=== PATIENT | female | born 1995 | race African-American/Black ===

== ENCOUNTER 2018-02-17 15:46 | Inpatient (IN) | payer OTHER ==
[~2018-02-17] VITALS: Ht 165.1 cm; Wt 100.7 kg
[2018-02-17] MEDS ORDERED: OXYTOCIN 10 UNITS/ML VIAL IM SCH (17:15)
[2018-02-17] MEDS ORDERED: METHYLERGONOVINE 0.2 MG/ML AMP IM PRN (17:15)
[2018-02-17] MEDS ORDERED: LACTATED RINGERS 1,000 ML IV SCH (17:15)
[2018-02-17] MEDS ORDERED: AMPICILLIN 2,000 MG in NACL 0.9% MINI-BAG PLUS 100 ML IV SCH (17:15)
[2018-02-17] MEDS ORDERED: NALBUPHINE 10 MG/ML AMP IVP PRN (17:15)
[2018-02-17] MEDS ORDERED: CARBOPROST 250 MCG/ML AMP IM PRN (17:15)
[2018-02-17] MEDS ORDERED: PROMETHAZINE 25 MG/ML VIAL IVP PRN (17:15)
[2018-02-17] MEDS ORDERED: PREN-546 PO (17:15)
[2018-02-17] MEDS ORDERED: MISOPROSTOL 25 MCG TAB ONE (18:16)
[2018-02-17 18:18] LABS: BASOPHILS # (AUTO) 0.1 K/uL (0.00-0.22); BASOPHILS % (AUTO) 0.6 % (0.0-2.0); EOSINOPHILS # (AUTO) 0.1 K/uL (0-0.4); EOSINOPHILS % (AUTO) 0.8 % (0.0-4.0); HEMATOCRIT 38.2 % (36-48); HEMOGLOBIN 12.5 g/dL (12.0-16.0); LYMPHOCYTES # (AUTO) 1.7 K/uL (2.5-16.5); LYMPHOCYTES % (AUTO) 18.2 % (20.5-51.1); MEAN CORPUSCULAR HEMOGLOBIN 29 pg (27-31); MEAN CORPUSCULAR HGB CONC 33 g/dL (33-37); MEAN CORPUSCULAR VOLUME 89.8 fL (80-94); MONOCYTES # (AUTO) 0.8 K/uL (0.8-1.0); MONOCYTES % (AUTO) 8.5 % (1.7-9.3); NEUTROPHILS # (AUTO) 6.6 K/uL (1.8-7.7); NEUTROPHILS % (AUTO) 71.9 % (42.2-75.2); PLATELET COUNT (AUTO) 250 K/uL (140-450); RED BLOOD CELL COUNT(AUTO) 4.25 MIL/uL (4.20-5.40); RED CELL DISTRIBUTION WIDTH 13.8 % (11.6-13.7); WHITE BLOOD COUNT (AUTO) 9.2 K/uL (4.8-10.8)
[2018-02-17 18:23] LABS: APPEARANCE,URINE SL CLOUDY (CLEAR); BILIRUBIN,URINE NEGATIVE (NEGATIVE); BLOOD, URINE NEGATIVE (NEGATIVE); COLOR,URINE YELLOW (YELLOW); LEUKOCYTE ESTERASE ,URINE NEGATIVE (NEGATIVE); NITRITE, URINE NEGATIVE (NEGATIVE); UGLUCOSE NEGATIVE (NEGATIVE)
[2018-02-17 18:29] LABS: BARBITURATE, URINE NEG. ng/ml (NEG <=200); BENZODIAZEPINE, URINE NEG. ng/mL (NEG <=200); CANNABINOID, URINE NEG. ng/mL (NEG <=50); COCAINE, URINE NEG. ng/mL (NEG <=300); OPIATE, URINE NEG. ng/mL (NEG <=2000); PHENCYCLIDINE SCREEN,URINE NEG. ng/mL (NEG <=25)
[2018-02-17 18:53] LABS: ALBUMIN 2.9 g/dL (3.4-5.0); CARBON DIOXIDE 20.8 mmol/L (21-32); CREATININE 0.6 mg/dL (0.6-1.3); POTASSIUM 3.8 mmol/L (3.5-5.1); TOTAL BILIRUBIN 0.3 mg/dL (0.0-1.0)
[2018-02-17] MEDS ORDERED: AMPICILLIN 1,000 MG in NACL 0.9% MINI-BAG PLUS 50 ML IV SCH (20:00)
[2018-02-17] MEDS: MISOPROSTOL 25 MCG TAB VG PRN (21:19)
[2018-02-17] MEDS ORDERED: AMPICILLIN 2,000 MG VIAL ONE (21:33)
[2018-02-18] MEDS ORDERED: AMPICILLIN 1,000 MG VIAL ONE ×5 (01:29→18:49)
[2018-02-18] MEDS ORDERED: MISOPROSTOL 25 MCG TAB ONE (01:29)
[2018-02-18] MEDS: MISOPROSTOL 25 MCG TAB VG PRN (01:53)
[2018-02-18] MEDS ORDERED: PROMETHAZINE 25 MG/ML VIAL ONE (05:17)
[2018-02-18] MEDS ORDERED: NALBUPHINE 10 MG/ML AMP ONE (05:17)
[2018-02-18] MEDS ORDERED: AMPICILLIN 2,000 MG VIAL ONE ×2 (05:36→20:00)
[2018-02-18] MEDS ORDERED: OXYTOCIN 20 UNITS/LR PREMIX 1,000 ML IV ONE (05:38)
--- NOTE | 2018-02-18 08:13 | NUR ---
PATIENT HAS BEEN SCREENED AND CATEGORIZED LOW RISK. PATIENT WILL BE SEEN WITHIN 7 DAYS OF ADMISSION. 02/24/[address], [facility]
[2018-02-18] MEDS ORDERED: ROPIVACAINE 0.2%/NS PREMIX 250 ML EPI ONE ×2 (10:01→17:14)
[2018-02-18] MEDS ORDERED: ROPIVACAINE 0.2%/NS PREMIX 250 ML EPI SCH (11:04)
[2018-02-18] MEDS ORDERED: TERBUTALINE 1 MG/ML VIAL SUBQ ONE (16:42)
[2018-02-18] MEDS ORDERED: CITRIC ACID/SODIUM CITRATE 30 ML UDC ONE (20:03)
[2018-02-18] MEDS ORDERED: ceFAZolin 1,000 MG VIAL ONE ×2 (20:09→20:35)
[2018-02-18] MEDS ORDERED: MORPHINE PRES FREE 2 MG/2 ML 2 mL UD SYRINGE ONE (20:24)
[2018-02-18] MEDS ORDERED: MIDAZOLAM 2 MG/2 ML VIAL ONE (20:24)
[2018-02-18] MEDS ORDERED: LIDOCAINE MPF 2% 100 MG/5 ML VIAL INJ ONE (20:28)
[2018-02-18] MEDS ORDERED: OXYTOCIN 10 UNITS/ML VIAL ONE ×2 (20:35→20:56)
[2018-02-18] MEDS ORDERED: METHYLERGONOVINE 0.2 MG/ML AMP ONE (20:56)
[2018-02-18] MEDS ORDERED: diphenhydrAMINE 50 MG/ML VIAL ONE (21:02)
[2018-02-18] MEDS ORDERED: OXYTOCIN 20 UNITS/LR PREMIX 2,000 ML IV ONE (21:02)
[2018-02-18] MEDS ORDERED: diphenhydrAMINE 50 MG/ML VIAL IVP PRN ×2 (21:10)
[2018-02-18] MEDS ORDERED: HYDROmorphone 1 MG/ML AMP IVP PRN (21:10)
[2018-02-18] MEDS ORDERED: ONDANSETRON 4 MG/2 ML VIAL IVP PRN ×2 (21:10)
[2018-02-18] MEDS ORDERED: NALBUPHINE 10 MG/ML AMP IVP PRN (21:10)
[2018-02-18] MEDS ORDERED: NALOXONE 0.4 MG/ML VIAL IVP PRN ×3 (21:10)
[2018-02-18] MEDS: MEPERIDINE 25 MG/ML SYR IVP PRN ×2 (21:20→22:00)
[2018-02-18] MEDS ORDERED: MEPERIDINE 25 MG/ML SYR ONE ×2 (21:23→22:04)
[2018-02-18] MEDS ORDERED: ONDANSETRON 4 MG/2 ML VIAL ONE (21:28)
[2018-02-18] MEDS ORDERED: BUPRENORPHINE 0.3 MG/ML VIAL IV PRN (23:20)
[2018-02-18] MEDS ORDERED: MEASLES, MUMPS, AND RUBELLA 1 VIAL SQVAC PRN (23:20)
[2018-02-18] MEDS ORDERED: SIMETHICONE 80 MG TAB.CHEW PO PRN (23:20)
[2018-02-18] MEDS ORDERED: TEMAZEPAM 15 MG CAP PO PRN (23:20)
[2018-02-18] MEDS ORDERED: TRIMETHOBENZAMIDE 200 MG/2 ML SYR IM PRN (23:20)
[2018-02-18] MEDS: KETOROLAC 30 MG/ML VIAL IM/IVP SCH (23:36)
[2018-02-19] MEDS: OXYTOCIN 20 UNITS in LACTATED RINGERS 1,000 ML IV SCH ×2 (04:36→12:29)
[2018-02-19] MEDS: KETOROLAC 30 MG/ML VIAL IM/IVP SCH ×2 (05:59→12:23)
[2018-02-19 09:46] LABS: BASOPHILS % (AUTO) 0.1 % (0.0-2.0); EOSINOPHILS % (AUTO) 0.2 % (0.0-4.0); HEMATOCRIT 33.6 % (36-48); HEMOGLOBIN 11.1 g/dL (12.0-16.0); LYMPHOCYTES # (AUTO) 1.1 K/uL (2.5-16.5); LYMPHOCYTES % (AUTO) 8.2 % (20.5-51.1); MEAN CORPUSCULAR HEMOGLOBIN 30 pg (27-31); MEAN CORPUSCULAR HGB CONC 33 g/dL (33-37); MEAN CORPUSCULAR VOLUME 89.6 fL (80-94); MONOCYTES # (AUTO) 1.1 K/uL (0.8-1.0); MONOCYTES % (AUTO) 8.3 % (1.7-9.3); NEUTROPHILS # (AUTO) 11.2 K/uL (1.8-7.7); NEUTROPHILS % (AUTO) 83.2 % (42.2-75.2); PLATELET COUNT (AUTO) 201 K/uL (140-450); RED BLOOD CELL COUNT(AUTO) 3.75 MIL/uL (4.20-5.40); RED CELL DISTRIBUTION WIDTH 13.4 % (11.6-13.7); WHITE BLOOD COUNT (AUTO) 13.4 K/uL (4.8-10.8)
[2018-02-19] MEDS ORDERED: IBUPROFEN 800 MG TAB PO PRN (18:00)
[2018-02-19] MEDS ORDERED: METHYLERGONOVINE 0.2 MG/ML AMP IM PRN (18:00)
[2018-02-19] MEDS ORDERED: HYDROcodone/APAP 5/325 MG 1 TAB TAB PO PRN (18:00)
[2018-02-19] MEDS ORDERED: SENNA 8.6 MG TAB PO SCH (21:00)
[2018-02-19] MEDS: oxyCODONE/APAP 5/325 MG 1 TAB TAB PO PRN (22:40)
[2018-02-20] MEDS: oxyCODONE/APAP 5/325 MG 1 TAB TAB PO PRN ×2 (04:11→10:38)
== END 2018-02-20 12:50 | disposition home or self-care (01) | DRG 540 ==
LOC: MFCC 15:46 → MLD 17:13 → OBSVTOIN 19:28 → MFCC 02-18 23:12
PROVIDERS: ADMIT Obstetrics & Gynecology; ATTEND Obstetrics & Gynecology
PROC: 3E0234Z Introduction of Serum, Toxoid and Vaccine into Muscle, Percutaneous Approach (ICD-10-PCS; 2018-02-18)
PROC: 00HU33Z Insertion of Infusion Device into Spinal Canal, Percutaneous Approach (ICD-10-PCS; 2018-02-18)
PROC: 3E0R3BZ Introduction of Anesthetic Agent into Spinal Canal, Percutaneous Approach (ICD-10-PCS; 2018-02-18)
PROC: 10D00Z1 Extraction of Products of Conception, Low, Open Approach (ICD-10-PCS; principal; 2018-02-18 20:00)
DX: O62.2 Other uterine inertia (principal); E66.9 Obesity, unspecified; O99.214 Obesity complicating childbirth; O76 Abnormality in fetal heart rate and rhythm complicating labor and delivery; Z37.0 Single live birth; O89.4 Spinal and epidural anesthesia-induced headache during the puerperium; Z83.3 Family history of diabetes mellitus; Z68.36 Body mass index [BMI] 36.0-36.9, adult; Z23 Encounter for immunization; Z3A.39 39 weeks gestation of pregnancy
CPT/HCPCS: G0378 ×4; 36415; 51702; 59200; 80053; 80305; 81003; 85025; 86592; 86886; 86900; 86901; 90715; J0290; J0690; J1200; J1885; J2001; J2175; J2210; J2250; J2270; J2300; J2405; J2550; J2590; J2795; J3105; J7060; J7120